=== PATIENT | male | born 1995 | race Caucasian/White ===

== ENCOUNTER 2018-01-13 18:59 | Emergency (ER) | payer OTHER ==
[~2018-01-13] VITALS: Ht 180.3 cm; Wt 114.7 kg
[2018-01-13 19:06] VITALS: BP 120/78
== END 2018-01-13 20:51 | disposition home or self-care (01) ==
LOC: ED 20:30
DX: S76.111A Strain of right quadriceps muscle, fascia and tendon, initial encounter (principal); X50.1XXA Overexertion from prolonged static or awkward postures, initial encounter; Y93.67 Activity, basketball; Y92.328 Other athletic field as the place of occurrence of the external cause; Y99.8 Other external cause status
CPT/HCPCS: 29505; 99284